=== PATIENT | male | born 1945 | race Caucasian/White ===

== ENCOUNTER 2018-01-21 07:25 | Day surgery (SDC) ==
[2015-02-26 20:51] VITALS: BMI 29.0
[2018-01-21] MEDS ORDERED: LIDOCAINE 1% 20 ML MDV ID STA (07:59)
[2018-01-21] MEDS ORDERED: VERSED ONE (09:15)
[2018-01-21] MEDS ORDERED: DIPRIVAN 20 ML VIAL IVP ONE (09:15)
[2018-01-21] MEDS ORDERED: LIDOCAINE HCL 2% LUER-JET ONE (09:15)
[2018-01-21 12:56] VITALS: BP 132/67; TEMP 98.7
--- NOTE | 2018-01-22 11:08 | OP ---
INDICATIONS FOR PROCEDURE: 72-year-old gentleman presents complaining of intermittent dysphagia to solid food. He also has a history of adenomatous polyps with his last colonoscopy three years ago. He presents for endoscopy and colonoscopy exam. Of note, the patient did tell me that he did not take the morning portion of the prescribed prep. MEDICATIONS: SEE ANESTHESIA NOTES. PROCEDURE: 1. ENDOSCOPY, BIOPSY, CITIZEN OF [place] DILATATION 2. COLONOSCOPY WITH SNARE POLYPECTOMY REPORT: The risks, benefits, alternatives and limitations were discussed in detail with the patient. Informed consent was obtained. After adequate sedation was achieved, the video endoscope was introduced in the posterior pharynx and esophagus under direct vision. I easily advanced down to the second portion of the duodenum. I then slowly withdrew the scope in a circumferential manner examining the mucosa quite carefully. The duodenal mucosa appeared unremarkable as did the duodenal bulb. The antrum and body were relatively unremarkable. The scope was retroflexed to look at the cardia and fundus which was unremarkable. The scope was anteflexed and withdrawn back through the esophagus. At the GE junction there was some mild inflammation consistent with LA Grade A reflux esophagitis. There was more erythema than broken mucosa. There was also circumferential stricture causing mild luminal narrowing. I biopsied the areas of inflammation for histological review. The mid and upper esophagus appeared unremarkable. I advanced the scope back down the gastric lumen. I placed a guidewire. Over the guidewire, I easily advanced a 54 [place] dilator. The patient tolerated the procedure well with stable vital signs and pulse oximetry throughout. The patient's bed was turned. A digital rectal exam revealed good tone, no masses. The colonoscope was introduced in the rectum and was advanced under direct visual guidance to the cecum. The cecum was identified by the appendiceal orifice and IC valve. While advancing the scope, I encountered two small 4 to 5 mm polyps in the mid transverse colon. I removed and destroyed both of these polyps using hot snare technique. I then advanced the scope on to the cecum. In the cecum, in the ascending colon, there was some solid and semi solid stool present. I had washed and suctioned most of this off as best as I could. I did this to increase visualization. I then slowly withdrew the scope in a circumferential manner examining the mucosa quite carefully. I looked on the proximal and distal side of folds and flexures as best as possible. I was able to retroflex the scope in the right colon as well as the left colon to increase visualization. I noted no abnormalities throughout the colon other than scattered small mouth diverticula throughout the sigmoid. The scope was retroflexed to look at the anal canal which was also unremarkable. The patient tolerated the procedure well with stable vital signs and pulse oximetry throughout. The prep was good to fair. The fair prep was in the right colon but this was washed and suctioned off as described above. Once it was washed off I believe there was adequate identified polyps greater than equal to 6 mm. After the colon was washed and suctioned about and once I began withdrawing the scope, the withdrawal time was 6 minutes and 20 seconds. IMPRESSION: 1. MILD DISTAL ESOPHAGITIS 2. DISTAL ESOPHAGEAL STRICTURE SUCCESSFULLY DILATED ABOVE 3. TWO (2) COLONIC POLYPS REMOVED 4. SIGMOID DIVERTICULOSIS RECOMMENDATIONS: 1. Strict reflux precautions. 2. Pepcid 20 mg b.i.d. for treatment of his reflux. 3. Await esophageal biopsy results to confirm benign nature. If there is any evidence of Hemphill's then I recommend repeat endoscopy examination again in one year. 4. Repeat colonoscopy examination again no later than 3 years based on the finding of two polyps and the prep, sooner if there are any signs or symptoms to indicate otherwise. 5. Will see him back in the office as needed. CC: DR. JACKLYN SARAVIA
== END 2018-01-21 10:20 | disposition home or self-care (01) ==
LOC: SURG 07:25
PROVIDERS: ATTEND Internal Medicine Gastroenterology
DX: Z86.010 Personal history of colon polyps (principal); D13.1 Benign neoplasm of stomach; K63.5 Polyp of colon; K57.30 Diverticulosis of large intestine without perforation or abscess without bleeding; R13.19 Other dysphagia; K21.0 Gastro-esophageal reflux disease with esophagitis; K22.2 Esophageal obstruction; Z09 Encounter for follow-up examination after completed treatment for conditions other than malignant neoplasm